=== PATIENT | female | born 1980 | race Caucasian/White ===

== ENCOUNTER 2018-11-26 02:54 | Day surgery (SDC) | payer OTHER ==
[~2018-11-26] VITALS: Ht 160 cm; Wt 69.5 kg
[2018-11-26] VITALS (8 sets, daily range): BP systolic 100–115; BP diastolic 50–80; PULSE 55–69; TEMP 97.6–98.8
[2018-11-26] MEDS ORDERED: COLACE 100100 MG/CAP PO (03:10)
[2018-11-26] MEDS ORDERED: PRENATAL (03:10)
[2018-11-26] MEDS ORDERED: NEXIUM 20MG20 MG PO (03:10)
[2018-11-26] MEDS ORDERED: ZYRTEC 10MG10 MG PO (03:11)
[2018-11-26 03:29] LABS: BASO # 0.1 (0.0-0.2); BASO % 0.7 % (0.0-2.0); EOS # 0.3 (0.0-0.7); EOS % 1.9 % (0-4.0); GRAN # 10.4 (1.4-6.5); GRAN % 78.2 % (42.2-75.2); HEMATOCRIT 36.3 % (37.0-47.0); HEMOGLOBIN 12.2 g/dl (12.5-16.0); LYMPH # 1.7 (1.2-3.4); LYMPH % 13.1 % (20.0-51.0); MEAN CELL VOLUME 90 fl (80.0-100.0); MEAN CORPUSCULAR HEMOGLOBIN 30 pg (27.0-31.0); MEAN CORPUSCULAR HGB CONC 34 g/dl (33.0-37.0); MEAN PLATELET VOLUME 9.3 fl (7.4-10.4); MONO # 0.8 (0.1-0.6); MONO % 5.7 % (1.7-9.3); PLATELET COUNT 195 K/mm3 (130-400); RED BLOOD COUNT 4.05 M/mm3 (4.10-5.30); REDCELL DISTRIBUTION WIDTH-CV 12.9 % (11.5-14.5)
--- NOTE | 2018-11-26 04:50 | NUR ---
Pt arrived to unit by wheelchair with ED staff. Pt taken directly to PACU for consult with anesthesia. LR started in left AC. Vital signs obtained. Consents signed. Plan of care reviewed with patient. All questions answered.
[2018-11-26] MEDS ORDERED: PERCOCET 325 MG1 TA2 PO (05:41)
--- NOTE | 2018-11-26 05:45 | NUR ---
Pt to room 222 by hospital bed. Pt sleeping but able to awaken on command, alert and oriented x 3. Plan of care reviewed with patient and spouse. LR infusing in left AC.
--- NOTE | 2018-11-26 06:45 | NUR ---
Ambulates to the bathroom and back. Tolerates well. Voids moderate amount of clear yellow urine.
--- NOTE | 2018-11-26 08:15 | NUR ---
Rests in bed, alert. States did eat some yogart. Ambulates to the bathroom, voids moderate amount of clear yellow urine.
--- NOTE | 2018-11-26 10:45 | NUR ---
Discharge instructions given, verbalizes understanding. Dismissed to home with instructions via wheel chair with this nurse and spouse. Alert, stable.
--- NOTE | 2018-11-26 13:41 | NUR ---
Initial visit; Patient thanked [employer] Supervisor for looking in on her and offering God's blessings.
== END 2018-11-26 10:45 | disposition home or self-care (01) ==
LOC: COL.ER 02:54 → LDRO 04:24 → OB 04:24 → LDRO 10:45 → OB 10:45
PROVIDERS: Emergency Medicine
DX: O03.4 Incomplete spontaneous abortion without complication (principal); Z82.49 Family history of ischemic heart disease and other diseases of the circulatory system; Z80.8 Family history of malignant neoplasm of other organs or systems; Z80.3 Family history of malignant neoplasm of breast; Z90.49 Acquired absence of other specified parts of digestive tract; F32.9 Major depressive disorder, single episode, unspecified; G43.909 Migraine, unspecified, not intractable, without status migrainosus; K91.1 Postgastric surgery syndromes; Z88.8 Allergy status to other drugs, medicaments and biological substances
CPT/HCPCS: OP; J1170; J2405; J2704; J3010; J7030; J7120